=== PATIENT | female | born 1950 | race Asian ===

== ENCOUNTER → 2017-01-23 | Day surgery (SDC) | payer OTHER ==
[~2017-01-23] MED LIST: ATORVASTATIN CA10 MG PO; MAGNESIUM500 MG PO; METFORMIN HCL500 M4 PO; MOBIC15 MG PO; PANTOPRAZOLE SO40 MG PO; TRIPLE OMEGA C400 MG PO
--- NOTE | ~2017-01-23 | OR ---
Unit #: [id number] #: [id number] Patient: CONNIE RHODES [id number] [address] [place], [place] [address] [id number] MR#: [id number] NAME: CONNIE RHODES ROOM: Date of Procedure: 01/23/2017 Admission Date: 01/23/2017 Surgeon: Jorge Carlson M.D. : 1950 Attending Physician: Jorge Carlson M.D. Primary Care Physician: [place] Rico M.D. OPERATIVE REPORT PRIMARY CARE PHYSICIAN Samina Maloney M.D. PREOPERATIVE DIAGNOSIS Colorectal cancer screening in an average-risk patient. PROCEDURE PERFORMED Colonoscopy up to cecum with good prep and visualization. POSTOPERATIVE DIAGNOSES Completely normal examination up to cecum. The patient did not have any polyps nor any diverticula or hemorrhoids. RECOMMENDATIONS Repeat colonoscopy in 10 years. SEDATION USED MAC. DESCRIPTION OF PROCEDURE Following detailed explanation of the potential risks and complications of a colonoscopy, namely perforation, bleeding, and complications related to sedation, the patient was brought to GI lab and laid in the left lateral decubitus position. A digital rectal examination was performed, which was normal. Lubricated tip of the Olympus video colonoscope was inserted through the anus and advanced under direct vision. The scope was advanced and passed up to sigmoid into descending colon. No diverticula were noted in this area. The scope tip was then navigated all the way up to cecum with visualization of the ileocecal valve and the appendiceal orifice. Preparation was excellent with good visualization and photodocumentation was obtained. Last several inches of the terminal ileum also visualized after intubation of the ileocecal valve and appeared normal. Successive segments of the colonic mucosa were examined upon withdrawal and appeared unremarkable. There being no polyps, mass lesions, AVMs, or diverticula. The patient did not have any hemorrhoids at anal verge. The scope was then withdrawn. The patient returned to the recovery area. She tolerated the procedure without any postprocedure complications. Dictated by... Jorge Carlson M.D. Unit #: [id number] #: [id number] Patient: CONNIE RHODES MARY/[place] TD: 01/23/2017 12:02 JOB #: [id number] CC: Samina Maloney M.D. OPERATIVE REPORT Page 1 of 1 X Jorge Carlson MD PROCEDURE OPERATIVE NOTE
== END | disposition home or self-care (01) ==
LOC: COPS 07:33
DX: Z12.11 Encounter for screening for malignant neoplasm of colon (principal); E11.9 Type 2 diabetes mellitus without complications; Z79.84 Long term (current) use of oral hypoglycemic drugs; Z79.1 Long term (current) use of non-steroidal anti-inflammatories (NSAID); Z79.899 Other long term (current) drug therapy
CPT/HCPCS: 82947